=== PATIENT | female | born 1980 | race Hispanic/Latino ===

== ENCOUNTER 2017-06-02 08:49 | Inpatient (IN) | payer OTHER ==
[2017-06-02] MEDS ORDERED: Lactated Ringer's 1,000 ML IV SCH ×2 (10:32→23:12)
[2017-06-02] MEDS ORDERED: cefOXitin Sodium 1 GM in Sodium Chloride 0.9% 100 ML IVPB ONE (10:32)
[2017-06-02 10:36] VITALS: BMI 43.1
--- NOTE | 2017-06-02 10:53 | OBADHP ---
Datetime: 06/02/2017 10:45 IP Chief Complaint Other: polyhydramnios/malpresentation IP Adm Impression Other: polyhydramnios Malpresentation in early labor with cervical changes Admit Comment, IP Provider: discussed with pt about malpresentation early labor with cervical change s and polyhydramnions and advised for delivery She understands and agreed Discussed with perinatologi st who agreed with delivery Extremities - PN: Normal Abdomen - PN: Abnormal Lungs - PN: Normal Heart - PN: Normal Thyroid - PN: Normal Neurologic - PN: Normal HEENT - PN: Normal General - PN: Normal Presentation-Admit: Transverse FHR - Baseline A Provider: 150's Membranes, Provider: Intact Contraction Comments Provider: 3-5 min Comments, ACOG Physical Exam: Abd gravid fundus at term, NT Ext no calf tenderness Gestation - Est Wks by US: 37 wks 4 d IP Hx Assessment: The History has been Reviewed and is Current IP Chief Complaint: Uterine contractions; Other NICHD Variability Prov Fetus A: Moderate 6-25bpm NICHD Accel Fetus A IP Provider: [id number] NICHD Decel Fetus A IP Provider: None Dilatation, Provider: 1cm Effacement, Provider: 50% Genitourinary Exam: Normal DTRs - PN: Normal IP Adm Impression: Term, intrauterine IP Admit Plan: Admit to unit; Initiate Section protocol
[2017-06-02 11:33] LABS: BASO % 0.4 % (0.0-2.0); EOS # 0.1 K/uL (0.0-0.7); EOS % 0.6 % (0.0-4.0); HEMATOCRIT 37.5 % (34.0-47.0); LYMPH # 1.6 K/uL (1.0-4.3); LYMPH % 13.6 % (20.0-40.0); MEAN CELL VOLUME 75.6 fl (81.0-99.0); MEAN CORPUSCULAR HEMOGLOBIN 23.7 pg (27.0-31.0); MEAN CORPUSCULAR HGB CONC 31.3 g/dL (33.0-37.0); MEAN PLATELET VOLUME 9.1 fl (7.2-11.7); MONO # 0.7 K/uL (0.0-0.8); MONO % 6.2 % (0.0-10.0); NEUT # 9.2 K/uL (1.8-7.0); NEUT % 79.2 % (50.0-75.0); RED CELL DISTRIBUTION WIDTH 15.3 % (11.5-14.5); WHITE BLOOD COUNT 11.6 K/uL (4.8-10.8)
[2017-06-02] MEDS ORDERED: Lactated Ringer's 1,000 ML IV ONE (16:00)
[2017-06-02] MEDS ORDERED: Oxytocin 30 units/LR 500ML 30 U/500 ML BAG IV ONE ×2 (17:05→18:03)
[2017-06-02] MEDS ORDERED: Morphine 1 mg/ml preservative-free Inj(Duramorph) ONE (17:24)
[2017-06-02] MEDS ORDERED: Oxycodone/Acetaminophen 5/325 mg Tab PO PRN ×2 (19:23→23:12)
[2017-06-03 00:38] VITALS: BP 115/81; PULSE 67; RESP 18; TEMP 97.4; O2SAT 98
[2017-06-03] MEDS: cefOXitin Sodium 1 GM in Sodium Chloride 0.9% 100 ML IVPB SCH ×3 (01:27→17:09)
[2017-06-03] MEDS ORDERED: cefOXitin Sodium 1 GM in Sodium Chloride 0.9% 100 ML IVPB SCH (01:30)
--- NOTE | 2017-06-03 14:00 | OBPPN ---
Datetime: 06/03/2017 13:57 PP Pain Prov: Within normal limits PP Nausea Prov: Denies PP Flatus Prov: Yes PP BM Prov: No PP Breasts Prov: Normal PP Heart Prov: Normal PP Lungs Prov: Normal PP Abdomen/Uterus Prov: Normal PP Lochia Prov: Normal PP Vulva/Perineum Prov: Normal PP CVA Tenderness Prov: Normal PP Extremities Prov: Normal PP C/S Incision Prov: Normal PP Progress Prov: Normal PP Impression Prov: Normal progression PP Plan Prov: Continue present management PP Progress Note Prov: stable pod1 continue present care may shower with assistance patient having r egular diet dressing is clean IP PP Procedures: None
[2017-06-03 20:55] LABS: HEMATOCRIT 31.3 % (34.0-47.0); MEAN CELL VOLUME 76.3 fl (81.0-99.0); MEAN CORPUSCULAR HGB CONC 31.4 g/dL (33.0-37.0); RED CELL DISTRIBUTION WIDTH 15.2 % (11.5-14.5); WHITE BLOOD COUNT 13.1 K/uL (4.8-10.8)
--- NOTE | 2017-06-04 12:29 | OBPPN ---
Datetime: 06/04/2017 12:23 PP Pain Prov: Within normal limits PP Pain Prov comment: No SOB, chest pains or leg pains PP Nausea Prov: Denies PP Flatus Prov: Yes PP BM Prov: No PP Nausea Prov comment: voiding well PP Breasts Prov: Normal PP Heart Prov: Normal PP Lungs Prov: Normal PP Abdomen/Uterus Prov: Abnormal PP Lochia Prov: Normal PP Vulva/Perineum Prov: Normal PP CVA Tenderness Prov: Normal PP Extremities Prov: Normal PP C/S Incision Prov: Normal PP Progress Prov: Normal PP Comments Phys Exam Prov: Abd soft ND depressible fundus firm below the umb, incision clean and dr y no active bleeding or suppt Ext no calf tenderness PP Impression Prov: Normal progression PP Plan Prov: Continue present management PP Progress Note Prov: Dulcolax suppt this pm Continue PP care OOB and ambulation IP PP Procedures: None Vital Signs Provider PP: Reviewed
[2017-06-04] MEDS ORDERED: Magnesium Hydroxide Susp 30 ml UD PO ONE (18:15)
--- NOTE | 2017-06-05 01:52 | OP ---
PREOPERATIVE DIAGNOSES: 1. at 37 plus weeks' gestation. 2. Polyhydramnios. 3. Malpresentation in early labor. POSTOPERATIVE DIAGNOSES: 1. at 37 plus weeks gestation. 2. Fibroid uterus. PROCEDURE PERFORMED: Primary low-transverse segment caesarean section. SURGEON: Fidel Riley MD INSURANCE SALES ASSOCIATE: Dr. Agrawal who was there for the entire duration of the case. Fleecer was needed in positioning the patient, operating up the abdomen, delivery of the baby, and closure of the abdomen. ANESTHESIA USED: Spinal per Dr. Sands. ESTIMATED BLOOD LOSS: 800 mL. DRAINS USED: None. REPLACEMENTS USED: None. FINDINGS: 1. Delivered living baby girl, baby appears term baby, cries spontaneously, pediatrist in attendance, score of 9 and 9. 2. Amniotic fluid clear, but copious and abundant. 3. Placenta complete and intact. 4. Both tubes and ovaries appeared grossly within normal limits to inspection bilaterally. 5. Three small posterior fundal fibroids, largest about 4 x 3 cm intramural in nature and in size. DESCRIPTION OF PROCEDURE: The patient was taken to the operating room and placed on the operating table in supine position with an indwelling Simpson catheter in the bladder draining clear fluid. At this time, spinal anesthesia was then induced. Patient was then re-placed in the supine position. Venodyne boots was applied to both legs and the abdomen was then draped and prepped in the usual sterile manner. Following this, we then proceeded to a test anesthesia, found it to be well secure and a Pfannenstiel incision was then made using sharp dissection 2 fingerbreadths above the symphysis pubis. The incision was then extended down to subcutaneous tissue and hemostasis obtained by means of electrocoagulation. Fascia was then identified and entered. The midline incision of the fascia was then extended laterally on each direction. Rectus muscle was then slit in the midline, exposing the peritoneum. Peritoneal layer was then picked up using two Naty clamps, retracted superiorly, and then entered using sharp dissection. Incision in the peritoneum was then extended superiorly and inferiorly under direct visualization. The bladder was then identified, it was then retracted inferiorly using the Gurjit retractor. The low transverse segment of the uterus was then identified. The visceroperitoneum covering this area was then entered using sharp dissection. Using blunt dissection, a bladder flap was then created and retracted inferiorly using the same Cowdrey retractor. An incision was then made in the low transverse segment of the uterus upon entering the uterine cavity. Clear fluid noted to be present. The fluid appears to be very abundant confirming the polyhydramnios diagnosis. The incision was then extended laterally in each direction using bandage scissors. Using a Hbmembh-Qizwyqo-Orymt procedure, a living baby girl was then delivered. The baby appears to be in breech position at this time. Upon delivering the baby, the baby was immediately aspirated using the bulb suction. The baby cried spontaneously. The umbilicus was then doubly clamped and cut and the baby handed to the pediatric personnel who was standing by. Samples of cord blood were then obtained and the placenta was then delivered complete and intact. At this time, the uterus was then exteriorized to provide better visualization. The uterine incision was then secured using multiple T-clamps. Uterine cavity was then thoroughly cleaned and the uterus massaged and contracted well. The uterine incision was then approximated using 0-Vicryl suture in a continuous interlocking manner. The second layer was also applied using 0-Vicryl suture in a continuous manner. Hemostasis checked and found to be well secured. The bladder flap was then approximated using a 2-0 Rapide in a continuous manner. All operative areas checked, hemostatically secure. Both tube and ovaries appeared grossly within normal limits to inspection bilaterally. Three small fibroids appears to be intramural in the posterior and fundal aspect of the womb. The largest one appeared to be 4 x 3 cm. At this time, free amniotic fluid and blood were evacuated from the pelvic cavity. Pelvic cavity was then irrigated using saline solution and the uterus allowed to retract back into its original position. All operative areas checked, hemostatically secured, and the peritoneum was then approximated using 0-Vicryl suture in a continuous manner. Rectus muscle was also approximated in the midline using several interrupted 0-Vicryl suture. The fascia was then identified. It was then approximated using 1-Vicryl suture in a continuous manner. Fascia was then checked and found to be free of defects. Subcutaneous tissue was then irrigated using saline solution and approximated using several interrupted 2-0 plain sutures. The skin was then approximated using a 3-0 Prolene in the subcuticular fashion. Steri-Strips were then applied. The patient tolerated the procedure well. There were no complications. Sponge, instrument, and needle count were correct x3. Clear fluid was noted to be present in the Simpson bag at this time. The patient tolerated the procedure well. There were no complications. She was transferred to the recovery room in satisfactory condition. Fidel Riley MD MTDD
--- NOTE | 2017-06-05 07:35 | OBPPN ---
Datetime: 06/05/2017 07:29 PP Pain Prov: Within normal limits PP Pain Prov comment: No SOB, chest pains or leg pains PP Nausea Prov: Denies PP Flatus Prov: Yes PP BM Prov: Yes PP Breasts Prov: Normal PP Heart Prov: Normal PP Lungs Prov: Normal PP Abdomen/Uterus Prov: Abnormal PP Lochia Prov: Normal PP Vulva/Perineum Prov: Normal PP CVA Tenderness Prov: Normal PP Extremities Prov: Normal PP C/S Incision Prov: Normal PP Progress Prov: Normal PP Comments Phys Exam Prov: Abd soft ND depressible fundus firm below umb. Incision clean and dry n o suppt or discharge Ext no calf tenderness PP Impression Prov: Normal progression PP Plan Prov: Discharge PP Progress Note Prov: D/C home and follow up in office 1 wk IP PP Procedures: None Vital Signs Provider PP: Reviewed
--- NOTE | 2017-06-05 07:36 | OBDCSUM ---
Datetime: 06/05/2017 07:33 Discharged to, Provider: Home Follow up at, Provider: Dr Riley Disch Instr Activity: Bedrest; May be up to bathroom; May be up for meals; May Shower Disch Instr Diet: Regular Discharge Instructions, Provider: Routine instructions given Discharge Diagnosis, Provider: Term Delivered Discharge Time: 06/05/2017 07:33 Follow up in weeks, Provider: 1 wk Contraception discussed, Prov: Yes Disch Activity Restrictions: No exercising; No lifting; No driving; Minimize walking; Minimize stair -climbing; No sexual activity; Nothing in vagina - Crewe, tampons, douche Discharge Comment, Provider: Continue PNC vit and iron Rx for percocet given Contraception after Delivery: Undecided
== END 2017-06-05 15:45 | disposition home or self-care (01) | DRG 766 ==
LOC: H.EROB2 08:49 → H.EROB 10:38 → H.OB/GYN 22:00
PROVIDERS: ADMIT Specialist; ATTEND Specialist
PROC: 10D00Z1 Extraction of Products of Conception, Low, Open Approach (ICD-10-PCS; principal; 2017-06-02)
PROC: 4A1HXCZ Monitoring of Products of Conception, Cardiac Rate, External Approach (ICD-10-PCS; 2017-06-02)
DX: O40.3XX0 Polyhydramnios, third trimester, not applicable or unspecified (principal); D25.1 Intramural leiomyoma of uterus; Z37.0 Single live birth; O32.9XX0 Maternal care for malpresentation of fetus, unspecified, not applicable or unspecified; O34.13 Maternal care for benign tumor of corpus uteri, third trimester; Z3A.37 37 weeks gestation of pregnancy